=== PATIENT | male | born 1975 | race Two or more races ===

== ENCOUNTER 2018-10-07 19:12 | Emergency (ER) | payer MEDICAID ==
--- NOTE | 2018-10-07 19:53 | ED Physician Chart ---
ED Chief Complaint/HPI - Patient Information Date Seen:: 10/07/18 Time Seen:: 19:35 Chief Complaint:: numbness right hand History of Present Illness:: Patient then numbness and weakness of the right hand for last 2 months increased the last 2 days. He has been unable to hold a cup of coffee for last 2 days. Denies recent or remote neck trauma. Allergies:: Allergies Allergy/AdvReac Type Severity Reaction Status Date / Time No Known Allergies Allergy Verified 10/07/18 19:30 Vitals:: Vital Signs - 8 hr 10/07/18 19:20 Temp 98.1 F HR 82 RR 18 BP 151/94 O2 Sat % 99 Historian:: Patient, Family Member Review:: Nurse's Note Reviewed ED Review of Systems - Review of Systems General/Constitutional: No fever, No chills Skin: No skin lesions Head: No headache Eyes: No loss of vision ENT: No earache Neck: No neck pain Cardio Vascular: No chest pain Pulmonary: No SOB GI: No nausea, No vomiting G/U: No dysuria Musculoskeletal: No bone or joint pain Endocrine: No polyuria Psychiatric: No prior psych history Hematopoietic: No bruising Allergic/Immuno: No urticaria Neurological: Focal symptoms ED Past Medical History - Past Medical History Past Medical History: No significant medical hx Family History: None Social History: Smoker, No Alcohol, Other (smokes 1 pack of cigarettes a day) Surgical History: other () bilateral hernia repair) Psychiatricy History: None Medication: None Family Medical History - Family Member Mother History Unknown: Yes Ethnicity: Non- ED Physical Exam - Physical Examination General/Constitutional: Well-developed, well-nourished, Alert, No distress Head: Atraumatic Eyes: Lids, conjuctiva normal, PERRL Other Eyes comments:: Optic disc are sharp Skin: Nl inspection, No rash, No skin lesions, No ecchymosis ENMT: External ears, nose nl, TM canals nl, Nasal exam nl, Lips, teeth, gums nl , Oropharynx nl Other ENMT comments:: 2.5 out of 4 pharyngeal erythema Neck: Nontender Other Neck comments:: Range of motion of the neck: 90 forward flexion, degrees extension, 35 rotation, 20 degrees of lateral flexion Respiratory: Nl effort/Exclusion, Clear to Auscultation, No Wheeze/Rhonchi/Rales Cardio Vascular: RRR GI: No tenderness/rebounding/guarding : No CVA tenderness Other Extremities comments:: CM the neurological Other Neuro/Psych comments:: Equal slightly decreased hand grasp; numbness palmar surface of right thumb, right index and right long fingers Misc: Normal back, No paraspinal tenderness ED Labs/Radiology/EKG Results - Radiology Results Results: CT of cervical spine shows no acute fracture or subluxation; degenerative joint disease, 3-4 mm posterior disc osteophyte at C6-C7 ED Assessment - Assessment General Assessment: Patient will be referred to Dr. Rodriguez. The report of the CT scan and a disc will be sent with the patient. ED Septic Shock - . Is Septic Shock (SBP<90, OR Lactate>4 mmol\L) present?: No - <6hrs of presentation: Vital Signs: Vital Signs - 8 hr 10/07/ 19:20 Temp 98.1 F HR 82 RR 18 BP 151/94 O2 Sat % 99 ED Reassessment (Disposition) - Reassessment Reassessment Condition:: Unchanged - Diagnosis Diagnosis:: Cervical radiculopathy; cervical spine degenerative joint disease - Aftercare/Follow up Instructions Aftercare/Follow-Up Instructions:: Refer to Discharge Instructions - Patient Disposition Discharge/Transfer:: Home Condition at Disposition:: Stable, Unchanged
--- NOTE | 2018-10-08 08:44 | Diagnostic Imaging Report ---
CT cervical spine without IV contrast HISTORY: Right hand numbness COMPARISON: None Technique: Axial images were obtained from the skull base to the upper thoracic spine without IV contrast. Multiplanar reconstructions were made. Total DLP: 597, CTDI25.9 FINDINGS: Images of the cervical spine obtained without contrast demonstrate no evidence of an acute fracture or subluxation. The alignment is anatomic. Mild to moderate degenerative changes are seen most pronounced at C6/C7 with 4 mm posterior disc osteophyte complex at this level asymmetric to the right causing mild right spinal canal and mild right neural foraminal narrowing. There is also 2 mm rightward disc osteophytic spur at C3/C4 causing mild asymmetric rightward spinal canal and mild right neural foraminal narrowing. No prevertebral soft tissue swelling. The lung apices are clear. IMPRESSION: No evidence of an acute fracture subluxation. Mild to moderate degenerative changes primarily at C3/C4 and C6/C7 with associated mild rightward spinal canal and mild right neural foraminal encroachment. Given patient's findings, if necessary MRI follow-up may also be obtained.
== END 2018-10-07 21:25 | disposition home or self-care (01) ==
LOC: ER 19:12
DX: M54.12 Radiculopathy, cervical region (principal); M47.892 Other spondylosis, cervical region; F17.210 Nicotine dependence, cigarettes, uncomplicated
CPT/HCPCS: 72125-TC; 82948-90; Z7502